=== PATIENT | male | born 1980 | race Caucasian/White ===

== ENCOUNTER → 2022-08-11 | Outpatient (CLI) | payer OTHER ==
[2022-08-11 09:51] LABS: ALANINE AMINOTRANSFERASE 231 U/L (12-78); ALBUMIN 4.3 g/dL (3.4-5.0); ALKALINE PHOSPHATASE 108 U/L (46-116); ANION GAP 8 mmol/L (8-16); ASPARTATE AMINOTRANSFERASE 62 U/L (15-37); BILIRUBIN,TOTAL 1.2 mg/dL (0.1-1.0); CALCIUM, TOTAL 9.3 mg/dL (8.8-10.5); CARBON DIOXIDE 29 mmol/L (22-29); CHLORIDE 104 mmol/L (98-107); CREATININE 1.07 mg/dL (0.60-1.30); GLOMERULAR FILTR. RATE CALC > 60 mL/min (>60); GLUCOSE,RANDOM 113 mg/dL (70-110); POTASSIUM 3.3 mmol/L (3.5-5.1); SODIUM SERUM 141 mmol/L (136-145); TOTAL PROTEIN, SERUM 7.4 g/dL (6.4-8.2); UREA NITROGEN, BLOOD 19 mg/dL (7-18)
[2022-08-12 05:06] LABS: HEPATITIS C AB (EIA) Non Reactive (Non Reactive)
== END | disposition home or self-care (01) ==
LOC: MSR 09:00
PROVIDERS: ATTEND Chiropractor
DX: M47.814 Spondylosis without myelopathy or radiculopathy, thoracic region (principal); M41.84 Other forms of scoliosis, thoracic region; M51.34 Other intervertebral disc degeneration, thoracic region; J92.9 Pleural plaque without asbestos; M41.9 Scoliosis, unspecified; M54.50 Low back pain, unspecified; R94.5 Abnormal results of liver function studies; M85.88 Other specified disorders of bone density and structure, other site
CPT/HCPCS: 71046; 72040; 72070; 72100; 80053; 80074; 36415-L1; 36415-TC